=== PATIENT | female | born 1965 | race Two or more races ===

== ENCOUNTER 2019-10-19 00:11 | Emergency (ER) | payer MEDICAID ==
[~2019-10-19] VITALS: Ht 162.6 cm; Wt 72.6 kg
[2019-10-19 00:24] VITALS: BP 127/79
--- NOTE | 2019-10-19 00:46 | NUR ---
URINE COLLECTED AND SENT TO LAB
[2019-10-19 00:48] LABS: APPEARANCE,URINE Cloudy (CLEAR); BILIRUBIN,URINE Negative (NEGATIVE); BLOOD, URINE Moderate Ery/uL (NEGATIVE); COLOR,URINE Yellow (YELLOW); KETONES,URINE Negative (NEGATIVE); LEUKOCYTE ESTERASE ,URINE Small (NEGATIVE); NITRITE, URINE Negative (NEGATIVE); PH,URINE 5.5 (5.0-8.0); PROTEIN,URINE 30 mg/dl (NEGATIVE); UGLUCOSE Negative (NEGATIVE); UROBILINOGEN,URINE 0.2 EU/dL (0.2)
[2019-10-19 01:21] LABS: BACTERIA,URINE Moderate /HPF (None Seen); SQUAMOUS EPITHELIAL CELL,UR Few /HPF (None Seen); WBC,URINE 51-80 /HPF (0-3)
--- NOTE | 2019-10-19 02:28 | NUR ---
Patient discharged to home in stable condition. Written and verbal after care instructions given. Patient verbalizes understanding of instruction.
--- NOTE | 2019-10-19 02:30 | NUR ---
TAP CARD GIVEN TO THE PT. CLINIC RESOURCES GIVEN TO THE PT WELL
== END 2019-10-19 02:32 | disposition home or self-care (01) ==
LOC: ER 00:11
DX: N39.0 Urinary tract infection, site not specified (principal); G35 Multiple sclerosis; Z98.890 Other specified postprocedural states
CPT/HCPCS: 81000-TC; 87086-TC; 87186-TC

== ENCOUNTER 2022-06-02 22:16 | Emergency (ER) | payer MEDICAID, OTHER ==
[~2022-06-02] VITALS: Ht 165.1 cm; Wt 81.6 kg
[2022-06-02 23:12] VITALS: BP 136/73
[2022-06-03] MEDS ORDERED: ACYC400T19 PO (00:03)
--- NOTE | 2022-06-03 00:43 | NUR ---
Patient discharged to home in stable condition. Written and verbal after care instructions given. Patient verbalizes understanding of instruction.
== END 2022-06-03 00:44 | disposition home or self-care (01) ==
LOC: ER 22:16
DX: L98.499 Non-pressure chronic ulcer of skin of other sites with unspecified severity (principal)
CPT/HCPCS: 87210-TC; 87491; 87591